=== PATIENT | male | born 1970 | race Caucasian/White ===

== ENCOUNTER 2018-11-07 10:46 | Emergency (ER) | payer OTHER ==
[~2018-11-07] VITALS: Ht 167.6 cm; Wt 109.1 kg
[2018-11-07 11:11] VITALS: BP 135/89
[2018-11-07] MEDS ORDERED: NYST1000 PO (11:47)
[2018-11-07] MEDS ORDERED: AMOX500C4 PO (11:47)
== END 2018-11-07 11:57 | disposition home or self-care (01) ==
LOC: ER 10:47
DX: H66.92 Otitis media, unspecified, left ear (principal); B37.0 Candidal stomatitis; E11.9 Type 2 diabetes mellitus without complications; Z79.899 Other long term (current) drug therapy
CPT/HCPCS: 99283